=== PATIENT | male | born 1945 | race Caucasian/White ===

== ENCOUNTER 2016-12-13 19:30 | Emergency (ER) | payer MEDICARE ==
[2016-12-13] MEDS ORDERED: ACETAMINOPHEN 325 MG TABLET ONE (20:13)
[2016-12-13] MEDS ORDERED: DIPHTH,PERTUSS(ACELL),TET VAC 0.5 ML VIAL IM V ONE (21:12)
--- NOTE | 2016-12-13 22:06 | CT ---
HEAD W/O CON COMPARISON: None HISTORY: Ground-level fall. Struck head. Bump above the left eye. TECHNIQUE: Using a [employer] Aquilion [address] scanner, images were obtained through the head. An automated dose reduction technique was used to minimize patient radiation dose. DOSE INFORMATION: CTDIvol (mGy): 51.70 DLP(mGycm): 164.80 FINDINGS: Mass: None Intracranial Hemorrhage: None Acute Infarction: None Cerebral hemispheres: Mild atrophy. Basal ganglia: Normal Thalami: Normal Brainstem: Normal Cerebellum: Normal Ventricles: Normal Basilar cisterns: Normal Corpus callosum: Normal Pituitary fossa: Normal Middle ears and mastoid air cells: Normal Orbits and sinuses: Left orbit fracture. Fluid or blood in the left maxillary sinus, both ethmoid sinuses, the left frontal sinus, and the sphenoid sinus. Skull and scalp: Left frontal scalp hematoma, 3.4 x 0.6 cm. No depressed skull fracture. Dural sinuses and vessels: Normal IMPRESSION: 1. Fracture of the left orbit with blood in the adjacent sinuses and a left supraorbital scalp hematoma without depressed skull fracture. 2. No intracranial hemorrhage or cerebral edema. The results were discussed with Milton Nobles M.D. 12/13/2016 at 20:40
--- NOTE | 2016-12-13 22:06 | CT ---
C-SPINE W/O CON COMPARISON: None. HISTORY: Ground-level fall. Neck injury. Technique: Using a [employer] Aquilion [address] scanner, images obtained through the cervical spine. An automated dose reduction technique was used to minimize patient radiation dose. Dose information: CTDIvol (mGy) 15.50 DLP(mGycm): 301.60 FINDINGS: Vertebral alignment: Chronic anterior angulation of C3 upon C4 creating a focal kyphosis from C3 through C5. C1-2 alignment: Normal. Craniocervical junction: Normal. Vertebral bodies: No fracture. C4-5, C5-6, C6-7 moderate osteophytes. Intervertebral discs: C3-4 severe disc narrowing. The vertebral bodies touch each other. C4-5, C5-6, C6-7 severe narrowing. Spinal canal: No stenosis. Facet joints and posterior arches: C3-4 fusion on the right and the left. C2-3 facet osteoarthritis on the right and left. Prevertebral soft tissues: Normal Lung apices and superior mediastinum: Normal. Airway: Normal. IMPRESSION: There is no fracture or dislocation cervical spine. 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 The results were discussed with Milton Nobles M.D. 12/13/2016 at 20:40
--- NOTE | 2016-12-13 22:06 | CT ---
FACIAL BONES W/O CON COMPARISON: None. HISTORY: Ground-level fall. Left orbit injury. Technique: The facial bones were imaged with a [employer] Aquilion [address] scanner. An automated dose reduction technique was used to minimize patient radiation dose. Dose information: CTDIvol (mGy) 28.80 DLP(mGycm) 588.10 FINDINGS: Bones: Nondisplaced fracture through the anterior wall of the left maxillary sinus. Teeth: No fracture or dislocation. Extensive dental work. Temporomandibular joints: Normal. Paranasal sinuses: Soft tissue density fills most of the left maxillary sinus, most of the ethmoid air cells, and most of the sphenoid sinus. Normal right maxillary sinus. Fluid in the left frontal sinus. Nasal passages: Soft tissue density in the superior left nasal passage. Orbits: Nondisplaced fracture of the anteromedial wall of the left orbit. Skull base: Normal. Upper cervical spine: Degenerative changes. Tongue: Normal. Salivary glands: Normal. Soft tissues: Left supraorbital scalp hematoma. IMPRESSION: 1. Nondepressed fracture of the anterior wall of the left maxillary sinus and nondisplaced fracture of the medial wall of the left orbit. Fluid and/or blood fills the left maxillary, left frontal, bilateral ethmoid, and sphenoid sinuses. 2. Left supraorbital scalp hematoma. The results were discussed with Milton Nobles M.D. 12/13/2016 at 20:40
== END 2016-12-13 21:33 | disposition home or self-care (01) ==
LOC: ED 19:30
DX: S02.82XA Fracture of other specified skull and facial bones, left side, initial encounter for closed fracture (principal); S00.83XA Contusion of other part of head, initial encounter; S00.81XA Abrasion of other part of head, initial encounter; I25.2 Old myocardial infarction; I10 Essential (primary) hypertension; H61.21 Impacted cerumen, right ear; Z79.01 Long term (current) use of anticoagulants; W01.10XA Fall on same level from slipping, tripping and stumbling with subsequent striking against unspecified object, initial encounter; Y93.01 Activity, walking, marching and hiking; Y92.414 Local residential or business street as the place of occurrence of the external cause
CPT/HCPCS: 90715; 72125; 70450; 70486; 90471; 99283 ×2; A9270